=== PATIENT | female | born 1965 | race Caucasian/White ===

== ENCOUNTER 2019-10-15 12:46 | Day surgery (SDC) | payer OTHER, SELFPAY ==
[2019-10-15 13:05] VITALS: BP 152/91; PULSE 72; RESP 15; TEMP 36.7; O2SAT 100; BMI 17.9
[2019-10-15] MEDS: SODIUM CHLORIDE 0.9% 1,000 ML 200 ML IV (13:24)
--- NOTE | 2019-10-15 13:32 | PM.HP.1 ---
History of Present Illness History of Present Illness Date Patient Seen: 10/15/19 Time Patient Seen: 13:32 Chief complaint: [id number] SCREENING COLONOSCOPY Narrative: This is a [age] year old woman with no personal or family history of colon polyps or colon cancers. She has never had a screening colonoscopy. She denies any history of melena, hematochezia,abdominal pain, or unexplained weight loss. She is otherwise healthy. She takes levothyroxine for hypothyroidism. She denies any other medical problems and she denies any surgical history. ROS: Thirteen system review is otherwise negative other than as mentioned below and in HPI. PE: GENERAL: Well groomed and cooperative. Appears stated age. Answers questions promptly and appropriately. Vital signs noted. HENT: Normocephalic, atraumatic. Hearing intact. Oral mucosa is pink and moist. EYES: Conjunctiva pink, sclera white, no periorbital swelling. CARDIOVASCULAR: Regular rate. No pedal edema. RESPIRATORY: Non-tachypneic, breathing comfortably on room air. GASTROINTESTINAL: Abdomen soft and non-distended GENITALURINARY: No flank tenderness. MUSCULOSKELETAL: Equal tone and mass bilaterally. SKIN: Warm, dry, soft, appropriate color for ethnicity. No other lesions, rashes, or wounds. NEURO: Alert and Oriented X 3. No gross sensory deficits, or cognitive issues. PSYCH: Appropriate affect and mood. Patient History Family & Social History Social History: household members spouse Meds Home Medications and Allergies Home Medications Medication Instructions Recorded Confirmed Type Synthroid 1.25 mcg DAILY 10/15/19 10/15/19 History Allergies Allergy/AdvReac Type Severity Reaction Status Date / Time No Known Drug Allergies Allergy Verified 10/15/19 13:05 Exam Vital Signs (past 8 hours): - 10/15/19 13:05 Temperature 98.0 F Pulse Rate 72 Respiratory Rate 15 Blood Pressure 152/91 H Pulse Oximetry 100 Oxygen Delivery Method Room Air Assessment & Plan Assessment and plan (1) At average risk for colon cancer: Current visit: Yes Status: Acute (2) Encounter for screening colonoscopy: Current visit: Yes Status: Acute Assessment & Plan narrative: This is a 54-year-old woman here for her 1st screening colonoscopy. Risks and benefits of colonoscopy and possible polypectomy were discussed including risk of bleeding, perforation, need for additional procedures. The patient desires to proceed with her colonoscopy. Time Spent With Patient Time with patient: 15-24 minutes Quality VTE Deep Vein Thrombosis/Pulmonary Embolism Present on Admission: No
[2019-10-15] MEDS: fentaNYL 250 MCG/5 ML INJ IV (13:55)
[2019-10-15] MEDS: MIDAZOLAM 5 MG/5 ML VIAL IV (13:56)
--- NOTE | 2019-10-15 14:03 | PM.OP.ENDO ---
Operative Date/Time/Diagnoses Date of procedure: 10/15/19 Time of procedure: 14:03 Pre-op diagnosis: Average risk for colon cancer, never had a screening colonoscopy Post-op diagnosis: same Procedure & Clinicians Study performed: Colonoscopy Same procedure as scheduled: Yes Indications: Average risk for colon cancer, never had a screening colonoscopy Surgeon: Yanet Novak Procedure Notes SCOAP/Timeout: Performed Procedure in detail: The patient was brought to the room and placed in left lateral decubitus position with all bony prominences padded. A time-out was performed and then the patient was given procedural sedation starting with 2 mg of Versed and 100 mcg of fentanyl. She received a total of 3 mg of Versed and 150 micro g of fentanyl for the procedure. Vitals were monitored throughout the procedure and remained stable. Once adequately sedated the procedure was begun. A rectal exam was performed revealing no abnormalities. The colonoscope was then introduced to the rectum and advanced to the cecum in the usual fashion. The cecum was identified by the appendiceal orifice, the mucosal tri-fold, and the ileocecal valve. The scope was then retracted while rotating side to side and examining each mucosal fold. At the conclusion of the procedure retroflexion was performed and small grade 1-2 internal hemorrhoids without stigmata of bleeding were seen. The scope was then withdrawn from the rectum the procedure was concluded. The patient tolerated the procedure well and was transferred to the PACU in stable condition. Scope withdrawal time: 9 Sedation minutes: 25 Specimen(s): none sent Complications: none Impression: Normal colon Post-procedure Recommendations: Colonscopy in 10 years (Unless concerning symptoms arise) Follow up: as needed Disposition: PACU
[2019-10-15 14:05] VITALS: BP 111/73; PULSE 64; RESP 8; TEMP 36.8; O2SAT 97
[2019-10-15 14:10] VITALS: BP 108/71; PULSE 60; RESP 10; TEMP 36.8; O2SAT 97
[2019-10-15 14:15] VITALS: BP 108/71; PULSE 57; RESP 20; TEMP 36.2; O2SAT 98
[2019-10-15 14:20] VITALS: BP 109/76; PULSE 54; RESP 18; TEMP 36.6; O2SAT 99
[2019-10-15 14:40] VITALS: BP 124/83; PULSE 54; RESP 16; TEMP 36.6; O2SAT 100
== END 2019-10-15 14:50 | disposition home or self-care (01) ==
PROVIDERS: Family Provider Student in an Organized Health Care Education/Training Program; PCP Student in an Organized Health Care Education/Training Program; Visit Provider Surgery
PROC: 0DJD8ZZ Inspection of Lower Intestinal Tract, Via Natural or Artificial Opening Endoscopic (ICD-10-PCS; CPT 45378; principal; 2019-10-15 13:45)
DX: Z12.11 Encounter for screening for malignant neoplasm of colon (principal); E03.9 Hypothyroidism, unspecified; K64.0 First degree hemorrhoids
CPT/HCPCS: 45378; 99152; 99153; J2250; J3010

== ENCOUNTER → 2020-12-17 15:11 | Outpatient (ROUT) | payer OTHER, SELFPAY ==
[2020-12-17 15:22] LABS: Hematocrit 36.7 % (36-46); Hemoglobin 11.4 g/dL (12.0-16.0); Mean Corpuscular HGB Conc 31.1 % (30-36); Mean Corpuscular Hemoglobin 23.5 PG (26-34); Mean Corpuscular Volume 75.6 fL (80-100); Platelet Count 164 X10^3/uL (150-400); Red Blood Cell Count 4.85 X10^6/uL (4.0-5.2); Red Cell Distribution Width 18.5 % (11.6-14.8); White Blood Cell Count 3.7 X10^3/uL (4.5-11.0)
[2020-12-17 15:36] LABS: Alanine Aminotransferase 16 IU/L (<35); Albumin 4.4 g/dL (3.5-5.0); Albumin Globulin Ratio 1.3 (1.0-2.8); Alkaline Phosphatase 74 U/L (38-126); Aspartate Aminotransferase 28 IU/L (14-36); Bilirubin Total 0.3 mg/dL (0.2-1.3); Blood Urea Nitrogen 15 mg/dL (7-17); Calcium 9.8 mg/dL (8.4-10.2); Carbon Dioxide 32 mmol/L (22-32); Chloride 102 mmol/L (98-107); Cholesterol 191 mg/dL (140-199); Estimated Glomerular Filt Rate > 60.0 mL/min (>60); Globulin 3.4 g/dL (1.7-4.1); Glucose 90 mg/dL (70-100); HDL Cholesterol 83 mg/dL (40-60); HEMOLYSIS < 15 (0-50); LDL Cholesterol Calculated 99 mg/dL (<100); Potassium 4.3 mmol/L (3.4-5.1); Sodium 139 mmol/L (137-145); Total Protein 7.8 g/dL (6.3-8.2); Triglycerides 44 mg/dL (35-150)
[2020-12-17 16:07] LABS: Thyroid Stimulating Hormone 0.593 uIU/mL (0.47-4.68)
== END ==
PROVIDERS: Family Provider Student in an Organized Health Care Education/Training Program; PCP Student in an Organized Health Care Education/Training Program; Visit Provider Student in an Organized Health Care Education/Training Program
DX: E03.9 Hypothyroidism, unspecified (principal); I10 Essential (primary) hypertension
CPT/HCPCS: 80053; 80061; 84443; 85027